=== PATIENT | female | born 1945 | race Caucasian/White ===

== ENCOUNTER 2024-01-18 10:42 | Outpatient (OUT) | payer MEDICARE, BC, SELFPAY ==
--- NOTE | 2024-01-18 10:51 | XR_ITS ---
The [address] [address] Patient Name: MAN MORRISON MRN: [id number] date: 1945 Sex: F Assigned Patient Location: [facility] Current Patient Location: [facility] Accession/Order Number: [id number] Exam Date: 01/18/2024 11:40 Report Date: 01/18/2024 11:56 At the request of: BRIGIDA BOYD Procedure: XR chest 2V EXAMINATION: XR chest 2V HISTORY: Preop exam COMPARISON: No relevant comparison available. TECHNIQUE: PA and lateral FINDINGS: LUNGS: No significant pulmonary parenchymal abnormalities. VASCULATURE: No increased pulmonary vasculature. PLEURA: No pneumothorax, effusion, or pleural thickening. CARDIAC: No cardiomegaly or cardiac silhouette abnormality. MEDIASTINUM: No visible mass or adenopathy. BONES: Moderate degenerative disc disease and spondylosis without visible acute abnormalities. OTHER: Negative. XR/XR chest 2V IMPRESSION: No acute cardiopulmonary process Electronically authenticated by: NHAN CUEVAS Date: 01/18/2024 11:56
[2024-01-18 11:53] LABS: Anion Gap 12.9; BUN Creatinine Ratio 11.6; Calcium 9.6 mg/dL (8.5-10.1); Carbon Dioxide 25.9 mmol/L (21.0-32.0); Chloride 101 mmol/L (98-107); Estimated GFR (African America >60 (>=60); Estimated GFR (Non-African Ame 57 (>=60); Glucose 123 mg/dL (74-106); Potassium 3.8 mmol/L (3.5-5.1); Sodium 136 mmol/L (136-145)
--- NOTE | 2024-01-18 11:57 | PM.PRESUREVA ---
History of Present Illness History of Present Illness Chief complaint: bladder tumor Narrative: Patient presents for preadmission testing accompanied by her daughter. Please see HPI from Dr. Smith dated 01/04/2024. Review of Systems ROS Narrative Please see ROS from Dr. Smith dated 01/04/2024. [facility] Medical History (Updated 01/18/24 @ 11:41 by Antionette Shaver NP) On home oxygen therapy ?Z99.81 - Dependence on supplemental oxygen (ICD-10) Back pain ?M54.9 - Dorsalgia, unspecified (ICD-10) Depression ?F32.A - Depression, unspecified (ICD-10) COVID-19 ?U07.1 - COVID-19 (ICD-10) Lung nodule ?R91.1 - Solitary pulmonary nodule (ICD-10) Sleep apnea ?G47.30 - Sleep apnea, unspecified (ICD-10) Seizures ?R56.9 - Unspecified convulsions (ICD-10) GERD (gastroesophageal reflux disease) ?K21.9 - Gastro-esophageal reflux disease without esophagitis (ICD-10) Dyspnea on exertion ?R06.09 - Other forms of dyspnea (ICD-10) MVP (mitral valve prolapse) ?I34.1 - Nonrheumatic mitral (valve) prolapse (ICD-10) Postoperative nausea and vomiting ?R11.2 - Nausea with vomiting, unspecified (ICD-10) ?Z98.890 - Other specified postprocedural states (ICD-10) History of cardioversion ?Z92.89 - Personal history of other medical treatment (ICD-10) Urinary frequency ?R35.0 - Frequency of micturition (ICD-10) Reactive airway disease ?J45.909 - Unspecified asthma, uncomplicated (ICD-10) Other urethral stricture, female ?N35.82 - Other urethral stricture, female (ICD-10) Osteopenia ?M85.80 - Other specified disorders of bone density and structure, unspecified site (ICD-10) Hyperlipidemia ?E78.5 - Hyperlipidemia, unspecified (ICD-10) Kidney stones ?N20.0 - Calculus of kidney (ICD-10) Impaired fasting glucose ?R73.01 - Impaired fasting glucose (ICD-10) Heart murmur ?R01.1 - Cardiac murmur, unspecified (ICD-10) Frequent urinary tract infections ?N39.0 - Urinary tract infection, site not specified (ICD-10) COPD (chronic obstructive pulmonary disease) ?J44.9 - Chronic obstructive pulmonary disease, unspecified (ICD-10) Dysuria ?R30.0 - Dysuria (ICD-10) Diabetes ?E11.9 - Type 2 diabetes mellitus without complications (ICD-10) Atrial fibrillation ?I48.91 - Unspecified atrial fibrillation (ICD-10) Arthritis ?M19.90 - Unspecified osteoarthritis, unspecified site (ICD-10) Irritable bowel syndrome ?K58.9 - Irritable bowel syndrome without diarrhea (ICD-10) Anxiety ?F41.9 - Anxiety disorder, unspecified (ICD-10) Hematuria ?R31.9 - Hematuria, unspecified (ICD-10) Lesion of bladder ?N32.9 - Bladder disorder, unspecified (ICD-10) Bladder tumor ?D49.4 - Neoplasm of unspecified behavior of bladder (ICD-10) Surgical History (Updated 01/18/24 @ 11:17 by Antionette Shaver NP) History of lumbar surgery ?Z98.890 - Other specified postprocedural states (ICD-10) H/O foot surgery ?Z98.890 - Other specified postprocedural states (ICD-10) H/O tubal ligation ?Z98.51 - Tubal ligation status (ICD-10) History of hysterectomy ?Z90.710 - Acquired absence of both cervix and uterus (ICD-10) H/O cardiac radiofrequency ablation ?Z98.890 - Other specified postprocedural states (ICD-10) H/O hemorrhoidectomy ?Z98.890 - Other specified postprocedural states (ICD-10) H/O colonoscopy ?Z98.890 - Other specified postprocedural states (ICD-10) H/O breast surgery ?Z98.890 - Other specified postprocedural states (ICD-10) S/P arthroscopic knee surgery ?Z98.890 - Other specified postprocedural states (ICD-10) History of appendectomy ?Z90.49 - Acquired absence of other specified parts of digestive tract (ICD-10) S/P cystourethroscopy with dilation of urethral stricture ?Z98.890 - Other specified postprocedural states (ICD-10) Family History (Updated 01/18/24 @ 11:50 by Antionette Shaver NP) Other Family history of cancer Family history of diabetes mellitus Family history of heart disease Family history of hypertension Family history of myocardial infarction Family history of seizures Family history of stroke Social History (Updated 01/18/24 @ 11:13 by Antionette Shaver NP) Within the past year, how often did you have a drink containing alcohol: never Score interpretation: A score less than 3 is consistent with normal alcohol consumption. Smoking status: Former smoker Non-prescribed substance use: denies use Highest level of school completed/degree received: high school graduate Meds Home Medications and Allergies Home Medications ?Medication ?Instructions ?Recorded ?Confirmed ?Type clonidine HCl 0.2 mg tablet 0.2 mg PO DAILY 01/18/24 01/18/24 History dofetilide 500 mcg capsule 500 mcg PO BID 01/18/24 01/18/24 History fluticasone fur. 100 mcg-umeclid 1 inh inhalation DAILY 01/18/24 01/18/24 History 62.5 mcg-vilant 25 mcg inhalat.powder (Trelegy Ellipta) furosemide 40 mg tablet 40 mg PO DAILY 01/18/24 01/18/24 History loratadine 10 mg capsule 10 mg PO DAILY 01/18/24 01/18/24 History lorazepam 1 mg tablet (Ativan) 1 mg PO QNOON 01/18/24 01/18/24 History metformin 500 mg tablet 500 mg PO BID 01/18/24 01/18/24 History montelukast 10 mg tablet 10 mg PO DAILY 01/18/24 01/18/24 History olanzapine 10 mg disintegrating 10 mg PO DAILY 01/18/24 01/18/24 History tablet pantoprazole 40 mg tablet,delayed 40 mg PO DAILY 01/18/24 01/18/24 History release polyethylene glycol 3350 17 17 g PO DAILY 01/18/24 01/18/24 History gram/dose oral powder (Miralax) potassium chloride 20 mEq 20 meq PO DAILY 01/18/24 01/18/24 History tablet,extended release(part/cryst) rivaroxaban 20 mg tablet (Xarelto) 20 mg PO DAILY 01/18/24 01/18/24 History spironolactone 25 mg tablet 25 mg PO DAILY 01/18/24 01/18/24 History temazepam 30 mg capsule 30 mg PO QPM 01/18/24 01/18/24 History tizanidine 4 mg capsule 8 mg PO QPM 01/18/24 01/18/24 History venlafaxine 150 mg 150 mg PO DAILY 01/18/24 01/18/24 History capsule,extended release 24 hr (Effexor XR) Allergies Allergy/AdvReac Type Severity Reaction Status Date / Time morphine Allergy Vomiting Verified 01/18/24 11:08 hydrochlorothiazide AdvReac Nausea Verified 01/18/24 11:08 Exam Narrative Exam Narrative: Constitutional: Awake, alert, comfortable, well-appearing, nontoxic, interactive, vital signs as charted Head: Normocephalic, atraumatic Neck: Supple, normal appearance, normal range of motion, no meningeal signs, no lymphadenopathy Respiratory: No respiratory distress, breath sounds clear Cardiovascular: Regular rate and rhythm, Systolic murmur noted Abdomen: Nontender, normal bowel sounds, soft, no CVA tenderness Musculoskeletal: Normal gait, no swelling or edema Skin: No rashes or induration, no lesions, only visible skin inspected Neuro: No neurological deficits, normal sensation Psychiatric: Oriented ?3, normal affect Assessment and Plan Assessment and Plan (1) Bladder tumor: (2) Lesion of bladder: (3) Hematuria: Plan Cystoscopy/TURBT scheduled with Dr. Smith 01/27/2024.
[2024-01-18 12:13] LABS: INR 1.18; Prothrombin Time 12.4 sec (9.0-11.6)
[2024-01-18 12:20] LABS: Basophils Absolute Auto 0.1 10^3/uL (0.0-0.1); Basophils Percent Auto 0.9 % (0.2-2.0); Eosinophils Absolute Auto 0.1 10^3/uL (0.0-0.7); Eosinophils Percent Auto 1.9 % (0.9-7.0); Hemoglobin 10.9 g/dL (12.0-16.0); Immature Granulocytes Abs Auto 0.02 10^3/uL (0.00-0.03); Immature Granulocytes Pct Auto 0.3 % (0.0-0.5); Lymphocytes Percent Auto 27.1 % (20.5-60.0); Mean Corpuscular HGB Conc 31.1 g/dL (29.9-35.2); Mean Corpuscular Hemoglobin 25.3 pg (26.7-34.0); Mean Corpuscular Volume 81.2 fL (81.0-99.0); Mean Platelet Volume 11.7 fL (9.5-13.5); Monocytes Absolute Auto 0.6 10^3/uL (0.3-0.8); Monocytes Percent Auto 8.4 % (1.7-12.0); Neutrophils Absolute Auto 4.6 10^3/uL (1.4-6.5); Neutrophils Percent Auto 61.4 % (43.0-75.0); Platelet Count 280 10^3/uL (150-450); Red Blood Count 4.31 10^6/uL (4.20-5.40); Red Cell Distribution Width 16.7 % (11.0-15.0); White Blood Count 7.4 10^3/uL (4.0-11.0)
[2024-01-18 12:39] LABS: Partial Thromboplastin Time 40.7 sec (22.3-36.2)
== END 2024-01-18 10:43 | disposition home or self-care (01) ==
LOC: PST 10:47
PROVIDERS: Visit Provider Urology
DX: Z01.810 Encounter for preprocedural cardiovascular examination (principal); Z01.812 Encounter for preprocedural laboratory examination; Z01.818 Encounter for other preprocedural examination; N32.89 Other specified disorders of bladder; R31.9 Hematuria, unspecified
CPT/HCPCS: 71046; 80048; 85025; 85610; 85730; G0463

== ENCOUNTER 2024-01-27 10:30 | Day surgery (SDC) | payer MEDICARE, BC, SELFPAY ==
[2024-01-18 11:39] VITALS: BP 148/82; PULSE 67; TEMP 36.2; O2SAT 96; BMI 40.0
[2024-01-27] VITALS (8 sets, daily range): BP systolic 166–206; BP diastolic 70–100; PULSE 68–94; TEMP 35.8–36.3; O2SAT 94–98; BMI 40.0
[2024-01-27 11:17] LABS: Glucometer 141 mg/dL (74-106)
[2024-01-27] MEDS: LACTATED RINGER'S SOLUTION 1,000 ML 50 ML IV (11:21)
[2024-01-27] MEDS: SCOPOLAMINE 1 MG/3 DAYS TRANSDERM PATCH 1 PATCH TD (13:01)
[2024-01-27] MEDS: CEFAZOLIN SODIUM/DEXTROSE,ISO 1 GM/50 ML IV.SOLN IV (13:18)
--- NOTE | 2024-01-27 14:07 | PM.URSON ---
Urology Surgery Operative Note Operative Note Procedure Date: 01/27/24 Time Out Performed: yes Pre-op Diagnosis: Bladder lesions Post-op Diagnosis: same as pre-op Procedures performed: 1. Cystoscopy. 2. Transurethral resection of bladder lesions approximately 4 cm Anesthesia: CANDICE Primary Surgeon: Nilson Smith Complications: None Estimated blood loss (mL): 5 Findings: Red raised irregular bladder lesions along the trigone Specimens: Bladder lesions Drains: None Indications for Procedures: This lady had gross hematuria. Cystoscopy revealed that she had papillary erythematous bladder lesions along the trigone which were bleeding. She now presents for cystoscopy and transurethral resection of bladder lesions. She has signed an informed consent for these procedures after risks were explained. Detailed description of Procedure: The patient was brought to the operating room and placed on the operating room table in the supine position. SCDs were placed on the lower extremities and turned on and functioning during the entire case. Timeout was done by all parties in the room. We all agreed upon the patient's identification and the planned procedures for this patient. Genn. Endotracheal anesthesia was then administered. The patient was then repositioned into the modified dorsal lithotomy position. All pressure points were satisfactorily padded. Genitalia were sterilely prepped and draped in usual fashion. I started by passing a 26 [place] [address] resectoscope per urethra and into the bladder. Panendoscopy in the bladder revealed the previously noted findings on office cystoscopy. I uniformly and deeply resected these sheets of papillary red and irregular lesions along the trigone. The area was then coagulated. The ureteral orifices were spared. Upon completion, there was no bleeding and both ureteral orifices effluxed clear urine. No other tumors were found within the bladder. The Il[place] was used to get all of the tissue out of the bladder and it was sent for permanent sections. The bladder was then drained of its contents and the scope was then removed. The anesthetic was then reversed. [facility] and wheeled to PACU in stable condition.
--- NOTE | 2024-01-27 14:59 | PC.NURSE ---
Up to bathroom and voids clear yellow without difficulty
== END 2024-01-27 15:20 | disposition home or self-care (01) ==
PROVIDERS: Visit Provider Urology
PROC: (CPT 52235; principal; 2024-01-27 11:55)
DX: N30.21 Other chronic cystitis with hematuria (principal); F41.9 Anxiety disorder, unspecified; E78.5 Hyperlipidemia, unspecified; K58.9 Irritable bowel syndrome, unspecified; I10 Essential (primary) hypertension; E11.9 Type 2 diabetes mellitus without complications; Z79.01 Long term (current) use of anticoagulants; J44.9 Chronic obstructive pulmonary disease, unspecified; I48.91 Unspecified atrial fibrillation; M19.90 Unspecified osteoarthritis, unspecified site; Z87.440 Personal history of urinary (tract) infections; Z90.711 Acquired absence of uterus with remaining cervical stump; N35.12 Postinfective urethral stricture, not elsewhere classified, female; Z87.891 Personal history of nicotine dependence
CPT/HCPCS: 52235; 36415; 82948; 85610; 85730; 88307; J1094; J2704